=== PATIENT | male | born 1970 | race Caucasian/White ===

== ENCOUNTER 2017-10-01 11:02 | Emergency (ER) | payer SELFPAY ==
[2017-10-01] MEDS ORDERED: Tetan/Diph/Pertus SYR(Tdap)* 0.5 ML SYR(BOOSTRIX) use SYR IM ONE (11:39)
[2017-10-01 13:24] VITALS: BP 00/00
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
== END 2017-10-01 13:21 | disposition home or self-care (01) ==
LOC: ED 11:02
DX: S81.852A Open bite, left lower leg, initial encounter (principal); W50.3XXA Accidental bite by another person, initial encounter; Y92.89 Other specified places as the place of occurrence of the external cause
CPT/HCPCS: 90471; 90715; 99281